=== PATIENT | male | born 1990 | race Caucasian/White ===

== ENCOUNTER 2021-04-13 00:05 | Emergency (ER) | payer BC ==
[2021-04-13] MEDS ORDERED: HYDROmorphone 1 MG/ML Syringe IVPUSH ONE (00:40)
[2021-04-13 00:54] LABS: ANION GAP 12.9 mEq/L (7-13); CHLORIDE,CL 101 mmol/L (98-107); SODIUM,NA 138 mmol/L (136-145)
--- NOTE | 2021-04-13 00:59 | EDM.PDOC ---
ED HPI GENERAL MEDICAL PROBLEM - General Chief Complaint: Respiratory Problem Stated Complaint: BACK SPAMS, PAIN IN LUNG, HARTIME BREATHING Time Seen by Provider: 04/13/21 01:00 Source of Information: Reports: Patient, RN, RN Notes Reviewed History Limitations: Reports: No Limitations - History of Present Illness INITIAL COMMENTS - FREE TEXT/NARRATIVE: Robson is a 30 y/o male who presents to the ED via personal vehicle with complaints of right upper back pain and shortness of breath. The patient states his symptoms began two nights ago after duck hunting. He characterizes the pain as sharp and notes it worsens with inspiration and when laying down. He notes the pain radiates from the upper back into his right upper chest. He denies recent illness, fever, shaking chills, abdominal pain, nausea, or vomiting. He denies history of cardiac or respiratory problems. He denies a history of COVID and has received the full dose of Moderna vaccine. 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 Rt. lower rib cage area. Pain Score (Numeric/FACES): 7 - Related Data Allergies Allergy/AdvReac Type Severity Reaction Status Date / Time No Known Allergies Allergy Verified 04/13/21 00:34 Home Meds: Home Meds Acetaminophen [Tylenol] 1,000 mg PO ASDIRECTED PRN 06/13/16 [History] Ibuprofen 800 mg PO ASDIRECTED PRN 06/13/16 [History] DULoxetine [Cymbalta] 30 mg PO DAILY 04/13/21 [History] buPROPion [buPROPion XL] 15 mg PO DAILY 04/13/21 [History] methocarbamoL [Robaxin] 500 mg PO ASDIRECTED PRN 04/13/21 [History] Past Medical History HEENT History: Reports: None Cardiovascular History: Reports: None Respiratory History: Reports: None Gastrointestinal History: Reports: None Genitourinary History: Reports: None Neurological History: Reports: None Psychiatric History: Reports: None Endocrine/Metabolic History: Reports: None Hematologic History: Reports: None Immunologic History: Reports: None Oncologic (Cancer) History: Reports: None Dermatologic History: Reports: None - Infectious Disease History Infectious Disease History: Reports: Chicken Pox - Past Surgical History Musculoskeletal Surgical History: Reports: Hip Replacement Social & Family History - Family History Family Medical History: No Pertinent Family History - Caffeine Use Caffeine Use: Reports: Coffee ED ROS GENERAL - Review of Systems Review Of Systems: Comprehensive ROS is negative, except as noted in HPI. ED EXAM, GENERAL - Physical Exam Exam: See Below Exam Limited By: No Limitations General Appearance: Alert, Mild Distress (Pain to right upper back) Eye Exam: Bilateral Eye: EOMI, Normal Inspection, PERRL (3mm) Ears: Normal External Exam, Normal Canal, Hearing Grossly Normal, Normal TMs Ear Exam: Bilateral Ear: Auricle Normal, Canal Normal, TM normal Nose: Normal Inspection, Normal Mucosa, No Blood Throat/Mouth: Normal Inspection, Normal Lips, Normal Teeth, Normal Gums, Normal Oropharynx, Normal Voice, No Airway Compromise Head: Atraumatic, Normocephalic Neck: Normal Inspection, Supple, Non-Tender, Full Range of Motion. No: Lymphadenopathy (L), Lymphadenopathy (R) Respiratory/Chest: No Respiratory Distress, Lungs Clear, Normal Breath Sounds, No Accessory Muscle Use, Chest Non-Tender (To right anterior upper chest). No: Crackles, Rales, Rhonchi, Wheezing, Stridor Cardiovascular: Normal Peripheral Pulses, Regular Rate, Rhythm, No Edema, No Gallop, No JVD, No Murmur, No Rub Peripheral Pulses: 2+: Radial (L), Radial (R), Dorsalis Pedis (L), Dorsalis Pedis (R) GI/Abdominal: Normal Bowel Sounds, Soft, Non-Tender, No Distention, No Abnormal Bruit, No Mass, Pelvis Stable (Male) Exam: Deferred Rectal (Males) Exam: Deferred Back Exam: Normal Inspection, Full Range of Motion Extremities: Normal Inspection, Normal Range of Motion, Non-Tender, No Pedal Edema, Normal Capillary Refill Neurological: Alert, Oriented, CN II-XII Intact, Normal Cognition, Normal Gait, No Motor/Sensory Deficits Psychiatric: Normal Affect, Normal Mood Skin Exam: Warm, Dry, Intact, Normal Color, No Rash. No: Cyanosis, Jaundice, Mottled, Pallor Lymphatic: No Adenopathy #1 Interpretation EKG Date: 04/13/21 Time: 00:47 Rhythm: NSR Rate (Beats/Min): 74 P-Wave: Present QRS: Normal ST-T: Normal QT: Normal CT/PQ Interval: 0.164 Comparison: No Change EKG Interpretation Comments: NSR; No evidence of acute myocardial ischemia Course - Vital Signs Last Recorded V/S: Last Vital Signs Temp 98.5 F 04/13/21 01:47 Pulse 71 04/13/21 01:47 Resp 18 04/13/21 01:47 BP 117/79 04/13/21 01:47 Pulse Ox 97 04/13/21 01:47 - Orders/Labs/Meds Orders: Active Orders 24 hr Category Date Time Status Ketorolac [Toradol] Med 04/13/21 03:00 Once 30 mg IVPUSH ONETIME ONE Medication Orders Ketorolac Tromethamine (Ketorolac 30 Mg/Ml Sdv) 30 mg IVPUSH ONETIME ONE Stop: 04/13/21 03:01 Labs: Laboratory Tests 04/13/21 04/13/21 04/13/21 Range/Units 00:26 00:26 00:26 WBC 8.0 (5.0-10.0) 10^3/uL RBC 5.30 (4.6-6.2) 10^6/uL Hgb 15.5 (14.0-18.0) g/dL Hct 44.3 (40.0-54.0) % MCV 83.6 (80-100) fL MCH 29.2 (27.0-34.0) pg MCHC 35.0 (33.0-35.0) g/dL Plt Count 173 (150-450) 10^3/uL Neut % (Auto) 65.5 (42.2-75.2) % Lymph % (Auto) 23.6 (20.5-50.1) % Pettis % (Auto) 9.5 H (2-8) % Eos % (Auto) 1.1 (1.0-3.0) % Baso % (Auto) 0.3 (0.0-1.0) % D-Dimer, Quantitative 273 (0-400) ng/mL Sodium 138 (136-145) mmol/L Potassium 3.9 (3.5-5.1) mmol/L Chloride 101 (98-107) mmol/L Carbon Dioxide 28 (21-32) mmol/L Anion Gap 12.9 (7-13) mEq/L BUN 11 (7-18) mg/dL Creatinine 1.00 (0.70-1.30) mg/dL Est Cr Clr Drug Dosing 123.30 mL/min Estimated GFR (MDRD) > 60 BUN/Creatinine Ratio 11.0 (No establ ref range) Glucose 107 H (70-99) mg/dL Calcium 9.2 (8.5-10.1) mg/dL Total Bilirubin 0.7 (0.2-1.0) mg/dL AST 14 L (15-37) U/L ALT 38 (16-63) U/L Alkaline Phosphatase 54 (46-116) U/L Troponin I High Sens 4 (<=76) pg/mL Total Protein 8.2 (6.4-8.2) g/dL Albumin 3.9 (3.4-5.0) g/dL Globulin 4.3 Albumin/Globulin Ratio 0.9 Meds: Medications Generic Name Dose Route Start Last Admin Trade Name Freq PRN Reason Stop Dose Admin Ketorolac Tromethamine 30 mg 04/13/21 03:00 Ketorolac 30 Mg/Ml Sdv IVPUSH 04/13/21 03:01 ONETIME ONE Discontinued Medications Generic Name Dose Route Start Last Admin Trade Name Freq PRN Reason Stop Dose Admin Hydromorphone HCl 1 mg 04/13/21 00:40 04/13/21 00:53 Hydromorphone 1 Mg/Ml Syringe IVPUSH 04/13/21 00:41 1 mg ONETIME ONE Administration Ketorolac Tromethamine 30 mg 04/13/21 02:54 Ketorolac 30 Mg/Ml Sdv IM 04/13/21 02:55 ONETIME ONE - Radiology Interpretation Free Text/Narrative:: [facility] Final Radiology Report Call: [phone] assistance Online chat: [email or web address] Data Name: ROBSON ANDREWS Age: 30Years M Date: 04/13/2021 SSN: -- : [id number] Study: CR RIBS 2V W CHEST RT Requesting Physician: Sheba Barrow Images: 3 Addl Studies: Provided Clinical History: rib pain on right no trauma Contrast: Contrast Medium: Contrast Amount: Contrast Method: CONFIDENTIALITY STATEMENT This report is intended only for use by the referring physician, and only in accordance with law. If you received this in error, call [phone]. Page 1 of 1 PROCEDURE INFORMATION: Exam: XR Right Ribs with PA Chest Exam date and time: 04/13/2021 1:21 AM Age: 30 years old Clinical indication: Pain; Other: RT rib; Additional info: Rib pain on right no trauma TECHNIQUE: Imaging protocol: XR Right ribs with PA chest. Views: 3 views COMPARISON: No relevant prior studies available. FINDINGS: Tubes, catheters and devices: Cardiac lead wires are present. Lungs: Unremarkable. No consolidation. Pleural spaces: Unremarkable. No pleural effusion. No pneumothorax. Heart/Mediastinum: Unremarkable. No cardiomegaly. Bones/joints: Unremarkable. No right rib fracture. IMPRESSION: Unremarkable examination. Thank you for allowing us to participate in the care of your patient. Dictated and Authenticated by: Jerry Spencer MD 04/13/2021 2:52 AM Central Time ([place] & [place]) - Re-Assessments/Exams Free Text/Narrative Re-Assessment/Exam: 04/13/21 Dilaudid 1mg IVP administered while labs pending. D-dimer and Troponin WNL. Will obtain CXR with right rib views. Findings of examination, imaging, and lab work reviewed with patient. Will t reat acute pain with Toradol x1 dose. Supportive cares discussed. Red flag signs and symptoms which would warrant reevaluation reviewed. Patient verbalized understanding and agreement with the plan of care. Departure - Departure Time of Disposition: 03:01 Disposition: Home, Self-Care 01 Condition: Good Clinical Impression: Atypical chest pain - Discharge Information *PRESCRIPTION DRUG MONITORING PROGRAM REVIEWED*: Not Applicable *COPY OF PRESCRIPTION DRUG MONITORING REPORT IN PATIENT [place]: Not Applicable Instructions: Nonspecific Chest Pain, Adult Forms: ED Department Discharge Additional Instructions: 1.) Continue on previously prescribed medication. 2.) You may take ibuprofen (Motrin/Advil) 400mg every six hours, as pain and swelling persist. You may also take acetaminophen (Tylenol) 650mg every six hours, as pain persists. You may stagger these medications so you are taking a dose every three hours. 3.) You may apply BioFreeze, or similar ointment/cream, to affected areas as pain persists. 4.) Follow up with your primary care provider regarding today's visit. Sepsis Event Note (ED) - Evaluation Sepsis Screening Result: No Definite Risk - Focused Exam Vital Signs: Vital Signs Temp Temp Pulse Resp BP Pulse Ox 04/13/21 01:47 98.5 F 71 18 117/79 97 04/13/21 01:03 99.1 F 78 14 144/73 H 96 04/13/21 00:25 98.3 F 73 22 H 134/99 H 99 - My Orders Last 24 Hours: My Active Orders 04/13/21 03:00 Ketorolac [Toradol] 30 mg IVPUSH ONETIME ONE - Assessment/Plan Last 24 Hours: My Active Orders 04/13/21 03:00 Ketorolac [Toradol] 30 mg IVPUSH ONETIME ONE
[2021-04-13 01:51] VITALS: BP 117/79; PULSE 71
--- NOTE | 2021-04-13 02:52 | CR ---
PROCEDURE INFORMATION: Exam: XR Right Ribs with PA Chest Exam date and time: 04/13/2021 1:21 AM Age: 30 years old Clinical indication: Pain; Other: RT rib; Additional info: Rib pain on right no trauma TECHNIQUE: Imaging protocol: XR Right ribs with PA chest. Views: 3 views COMPARISON: No relevant prior studies available. FINDINGS: Tubes, catheters and devices: Cardiac lead wires are present. Lungs: Unremarkable. No consolidation. Pleural spaces: Unremarkable. No pleural effusion. No pneumothorax. Heart/Mediastinum: Unremarkable. No cardiomegaly. Bones/joints: Unremarkable. No right rib fracture. IMPRESSION: Unremarkable examination.
[2021-04-13] MEDS ORDERED: Ketorolac 30 MG/ML SDV IM ONE (02:54)
[2021-04-13] MEDS ORDERED: Ketorolac 30 MG/ML SDV IVPUSH ONE (03:00)
== END 2021-04-13 03:16 | disposition home or self-care (01) ==
LOC: DL.ED 00:05
DX: R07.89 Other chest pain (principal)
CPT/HCPCS: 36415; 71101; 80053; 84484; 85025; 85379; 93005; 96374; 96375; 99285; J1170; J1885